=== PATIENT | female | born 2000 | race Caucasian/White ===

== ENCOUNTER 2020-10-30 12:26 | Emergency (ER) | payer MEDICAID ==
[~2020-10-30] VITALS: Wt 117.9 kg
[~2020-10-30 12:26] MED LIST: PREDNISONE50 MG PO
== END 2020-10-30 14:56 | disposition home or self-care (01) ==
LOC: ED 12:26
DX: S80.12XA Contusion of left lower leg, initial encounter (principal); Z79.899 Other long term (current) drug therapy; X50.9XXA Other and unspecified overexertion or strenuous movements or postures, initial encounter; Y93.89 Activity, other specified; Y92.512 Supermarket, store or market as the place of occurrence of the external cause; Y99.8 Other external cause status

== ENCOUNTER 2020-11-01 12:59 | Emergency (ER) | payer MEDICAID ==
[2020-11-01] MEDS ORDERED: PREDNISONE50 MG PO (15:26)
== END 2020-11-01 15:36 | disposition home or self-care (01) ==
LOC: ED 12:59
DX: G57.32 Lesion of lateral popliteal nerve, left lower limb (principal); Z79.899 Other long term (current) drug therapy